=== PATIENT | male | born 1970 | race Caucasian/White ===

== ENCOUNTER 2022-10-10 09:23 | Outpatient (CLI) | payer BC, SELFPAY ==
--- NOTE | ~2022-10-10 | CT_ITS ---
EXAMINATION: CT lung screening DATE: 10/10/2022 09:56 INDICATION: Lung cancer screening TECHNIQUE: Computed tomography (CT) of the chest was performed without intravenous contrast. Addition al 3D reconstructions utilizing coronal maximum intensity projection (MIP) were performed. Automated exposure control and iterative reconstruction technique were employed. The dose-length product was 13 6.75 mGy-cm. COMPARISON: None FINDINGS: Moderate emphysema. 6 mm nodule at the lingula. Subpleural 4-5 mm right lower lobe nodule. No pneumon ia, pulmonary edema or pleural effusion. Heart size is normal. No pericardial or pleural effusion. Th oracic aorta is normal in caliber. No pathologically enlarged thoracic lymphadenopathy. Visualized up per abdomen is unremarkable. Moderate lower cervical and mild thoracic spondylosis. IMPRESSION: 1. Lung-RADS category 3: Probably benign. Further evaluation is recommended with noncontrast low-dose chest CT in 6 months. Reviewed, dictated and finalized at location [facility]. IMPRESSION: 1. Lung-RADS category 3: Probably benign. Further evaluation is recommended wit h noncontrast low-dose chest CT in 6 months.
== END 2022-10-10 09:24 | disposition home or self-care (01) ==
PROVIDERS: PCP Internal Medicine; Visit Provider Physician Assistant
DX: Z12.2 Encounter for screening for malignant neoplasm of respiratory organs (principal); Z87.891 Personal history of nicotine dependence; R91.8 Other nonspecific abnormal finding of lung field
CPT/HCPCS: 71271

== ENCOUNTER 2023-04-13 15:51 | Outpatient (CLI) | payer BC, SELFPAY ==
--- NOTE | ~2023-04-13 | CT_ITS ---
EXAMINATION: CT diagnostic chest wo con DATE: 04/13/2023 16:08 INDICATION: Solitary pulmonary nodule TECHNIQUE: Computed tomography (CT) of the chest was performed without intravenous contrast. Automate d exposure control and iterative reconstruction technique were employed. Exam dose: 116.84 mGy-cm to osiel exam DLP. COMPARISON: 10/10/2022 CT lung screenin mm lingular nodule and subpleural 4 to 5 mm right lower lo be nodule; six-month CT follow-up is recommended FINDINGS: Stable 4-5 mm subpleural right lower lobe nodule, with very high attenuation consistent wit h calcification, benign, unchanged since 10/10/2022. Stable 6 mm lingular nodule with attenuation values, consistent with benign calcified granuloma, unch anged since 10/10/2022. Moderate emphysematous changes of the lungs. No significant new or enlarging pulmonary mass lesion. No pulmonary infiltrate or consolidation. Normal heart size. No pericardial or pleural effusion. No thoracic aortic aneurysm. No hilar or mediastinal mass lesion or lymphadenopathy. Normal morphology of the adrenal glands. Old healed posterior left seventh and eighth rib fractures. Included skeletal structures are otherwis e unremarkable. IMPRESSION: Stable calcified 4-5 mm right lower lobe subpleural nodule and stable 6 mm calcified kiran gular granuloma, benign Reviewed, dictated and finalized at [facility]. Reviewed, dictated and finalized at location [facility]. [facility] IMPRESSION: Stable calcified 4-5 mm right lower lobe subpleural nodule and sta ble 6 mm calcified lingular granuloma, benign
== END 2023-04-13 15:52 | disposition home or self-care (01) ==
LOC: ANHIMG 15:53
PROVIDERS: PCP Internal Medicine; Visit Provider Physician Assistant
DX: R91.1 Solitary pulmonary nodule (principal)
CPT/HCPCS: 71250